=== PATIENT | female | born 1990 | race Two or more races ===

== ENCOUNTER → 2024-06-02 | Outpatient (CLI) | payer OTHER ==
[2024-06-02 13:08] LABS: HEMATOCRIT 38.7 % (36.0-47.0); HEMOGLOBIN 12.6 g/dl (12.0-15.5); MEAN CORPUSCULAR HEMOGLOBIN 28.4 pg (27.0-33.0); MEAN CORPUSCULAR HGB CONC 32.6 g/dl (32.0-36.5); MEAN CORPUSCULAR VOLUME 87.2 fl (80.0-96.0); PLATELET COUNT, AUTOMATED 329 10^3/uL (150-450); RED BLOOD COUNT 4.44 10^6/uL (4.00-5.40); WHITE BLOOD COUNT 9.1 10^3/uL (4.0-10.0)
[2024-06-02 13:41] LABS: HIV 1&2 SCREEN NEGATIVE (NEGATIVE)
[2024-06-02 13:49] LABS: HEPATITIS C VIRUS ABY INDEX 0.06 INDEX (<0.8)
[2024-06-02 14:46] LABS: GC DNA AMPLIFICATION NEGATIVE (NEGATIVE)
== END ==
LOC: M PLALAB 09:20
PROVIDERS: ATTEND Obstetrics & Gynecology
DX: Z34.01 Encounter for supervision of normal first pregnancy, first trimester (principal); Z31.430 Encounter of female for testing for genetic disease carrier status for procreative management

== ENCOUNTER → 2024-08-15 | Outpatient (CLI) | payer OTHER | LOC: M RAD 10:44 | PROVIDERS: ATTEND Nurse Practitioner Family | DX: Z34.02 Encounter for supervision of normal first pregnancy, second trimester (principal) ==

== ENCOUNTER → 2024-09-08 | Outpatient (CLI) | payer OTHER ==
[~2024-09-08] MED LIST: ACET-907 PO; ASPI81CH33 PO; PRENTAB9 PO
[2024-09-08 14:04] LABS: HEMATOCRIT 35.6 % (36.0-47.0); HEMOGLOBIN 11.3 g/dl (12.0-15.5); MEAN CORPUSCULAR HEMOGLOBIN 28.1 pg (27.0-33.0); MEAN CORPUSCULAR HGB CONC 31.7 g/dl (32.0-36.5); MEAN CORPUSCULAR VOLUME 88.6 fl (80.0-96.0); PLATELET COUNT, AUTOMATED 316 10^3/uL (150-450); RED BLOOD COUNT 4.02 10^6/uL (4.00-5.40); WHITE BLOOD COUNT 9.6 10^3/uL (4.0-10.0)
[2024-09-08 14:37] LABS: GLUCOSE CHALLENGE TEST 1 HOUR 123 MG/DL (LESS THAN 140)
[2024-09-08 15:07] LABS: HIV 1&2 SCREEN NEGATIVE (NEGATIVE)
[2024-09-08 15:15] LABS: HEPATITIS C VIRUS ABY INDEX 0.14 INDEX (<0.8)
[2024-09-08 15:17] LABS: Trichomonas vaginalis (AMP) NOT DETECTED (NEGATIVE)
[2024-09-08 15:41] LABS: GC DNA AMPLIFICATION NEGATIVE (NEGATIVE)
== END ==
LOC: M PLALAB 10:30
PROVIDERS: ATTEND Nurse Practitioner Family
DX: Z34.80 Encounter for supervision of other normal pregnancy, unspecified trimester (principal)

== ENCOUNTER → 2024-09-24 | Outpatient (CLI) | payer OTHER | LOC: M WHC 13:44 | PROVIDERS: ATTEND Nurse Practitioner Family | DX: Z34.02 Encounter for supervision of normal first pregnancy, second trimester (principal); Z3A.21 21 weeks gestation of pregnancy ==

== ENCOUNTER 2024-09-28 14:18 | Outpatient (CLI) | payer OTHER ==
[~2024-09-28] VITALS: Ht 167.6 cm; Wt 113.0 kg
[2024-09-28] MEDS ORDERED: ACET-907 PO (14:47)
[2024-09-28] MEDS ORDERED: ASPI81CH33 PO (14:47)
[2024-09-28] MEDS ORDERED: PRENTAB9 PO (14:47)
[2024-09-28] MEDS ORDERED: HOME MED LIST COMPLETE! XX SCH (14:50)
[2024-09-28 15:03] VITALS: BP 113/68; O2SAT 97
[2024-09-28 15:38] VITALS: BP 123/68
[2024-09-28 16:29] LABS: HEMATOCRIT 34.6 % (36.0-47.0); HEMOGLOBIN 11.3 g/dl (12.0-15.5); MEAN CORPUSCULAR HEMOGLOBIN 28.5 pg (27.0-33.0); MEAN CORPUSCULAR HGB CONC 32.7 g/dl (32.0-36.5); MEAN CORPUSCULAR VOLUME 87.4 fl (80.0-96.0); PLATELET COUNT, AUTOMATED 296 10^3/uL (150-450); RED BLOOD COUNT 3.96 10^6/uL (4.00-5.40); WHITE BLOOD COUNT 11.7 10^3/uL (4.0-10.0)
== END 2024-09-28 15:46 | disposition home or self-care (01) ==
LOC: M LDO 14:18
PROVIDERS: ATTEND Obstetrics & Gynecology
DX: O26.892 Other specified pregnancy related conditions, second trimester (principal); W00.0XXA Fall on same level due to ice and snow, initial encounter; Y92.9 Unspecified place or not applicable; Y93.9 Activity, unspecified; Y99.9 Unspecified external cause status; Z3A.27 27 weeks gestation of pregnancy
CPT/HCPCS: 36415; 59025; 85027; 85460; G0463

== ENCOUNTER 2024-10-13 15:12 | Outpatient (RCR) | payer OTHER | END 2024-10-27 | LOC: M PT 15:12 | PROVIDERS: ATTEND Nurse Practitioner Family | DX: R10.2 Pelvic and perineal pain (principal) ==

== ENCOUNTER 2024-11-14 11:30 | Outpatient (RCR) | payer OTHER | END 2024-11-26 | LOC: M PT 11:30 | PROVIDERS: ATTEND Nurse Practitioner Family | DX: O26.892 Other specified pregnancy related conditions, second trimester (principal); R10.2 Pelvic and perineal pain; Z3A.24 24 weeks gestation of pregnancy ==

== ENCOUNTER → 2024-12-01 | Outpatient (REF) | payer OTHER | LOC: M PLALAB 09:14 | PROVIDERS: ATTEND Nurse Practitioner Family | DX: Z36.85 Encounter for antenatal screening for Streptococcus B (principal); Z3A.36 36 weeks gestation of pregnancy ==

== ENCOUNTER → 2025-04-29 | Outpatient (REF) | payer OTHER ==
[~2025-04-29] MED LIST changes: +MM S100C PO
[2025-05-01 15:57] LABS: HPV APTIMA Detected (Not Detected)
== END ==
LOC: M PLALAB 16:11
PROVIDERS: ATTEND Nurse Practitioner Family
DX: Z12.4 Encounter for screening for malignant neoplasm of cervix (principal)
CPT/HCPCS: 87624; G0123

== ENCOUNTER → 2025-05-27 | Outpatient (REF) | payer OTHER | LOC: M PLALAB 12:15 | PROVIDERS: ATTEND Physician Assistant | DX: R87.612 Low grade squamous intraepithelial lesion on cytologic smear of cervix (LGSIL) (principal) ==